=== PATIENT | male | born 1965 | race Caucasian/White ===

== ENCOUNTER 2017-09-03 09:54 | Inpatient (IN) | payer OTHER ==
[~2017-09-03] VITALS: Ht 180.3 cm; Wt 97.3 kg
[2017-09-03] MEDS ORDERED: ASPIRIN 81 MG TABLET CHEW PO ONE ×2 (10:30→11:30)
[2017-09-03 10:45] LABS: BASOPHILS # (AUTO) 0.03 x10^3/uL (0-0.1); BASOPHILS % (AUTO) 0 % (0-1); EOSINOPHILS # (AUTO) 0.02 x10^3/uL (0-0.4); EOSINOPHILS % (AUTO) 0 % (1-7); LYMPHOCYTES # (AUTO) 1.42 x10^3/uL (1-3.4); LYMPHOCYTES % (AUTO) 9 % (22-44); MD NO; MEAN CORPUSCULAR HEMOGLOBIN 32.7 pg (27.5-34.5); MEAN CORPUSCULAR VOLUME 95.9 fL (81-97); MEAN PLATELET VOLUME 8.4 fL (7.4-10.4); MONOCYTES # (AUTO) 1.07 x10^3/uL (0.2-0.8); MONOCYTES % (AUTO) 7 % (2-9); NEUTROPHILS # (AUTO) 13.24 x10^3/uL (1.8-6.8); NEUTROPHILS % (AUTO) 84 % (42-75); PLATELET COUNT 224 x10^3/uL (130-400); RED BLOOD COUNT 5.35 x10^6/uL (4.38-5.82)
[2017-09-03 10:53] LABS: INTERNATIONAL NORMALIZED RATIO 1.01 (0.93-1.1); PROTHROMBIN TIME 10.5 Seconds (9.6-11.5)
[2017-09-03 10:57] LABS: ALBUMIN 3.7 g/dL (3.4-5.0); ANION GAP 9 mmol/L (5-15); CALCIUM 8.7 mg/dL (8.5-10.1); CHLORIDE 103 mmol/L (98-107)
[2017-09-03 11:03] LABS: ALANINE AMINOTRANSFERASE 69 U/L (12-78); ALKALINE PHOSPHATASE 67 U/L (45-117); BILIRUBIN,TOTAL 0.8 mg/dL (0.2-1.0); CREATININE 1.11 mg/dL (0.7-1.3); TOTAL PROTEIN 7.7 g/dL (6.4-8.2)
[2017-09-03] MEDS ORDERED: ONDANSETRON ODT 4 MG ONE (11:24)
[2017-09-03] MEDS ORDERED: LEVOFLOXACIN/PMX 750MG/150ML 150 ML ONE (11:25)
[2017-09-03] MEDS ORDERED: MORPHINE SULFATE 4 MG/ML, 1ML ONE (11:25)
[2017-09-03] MEDS ORDERED: METOPROLOL 1 MG/ML, 5ML ONE (11:25)
[2017-09-03] MEDS ORDERED: ASPIRIN 81 MG TABLET CHEW ONE (11:25)
[2017-09-03] MEDS ORDERED: NITROGLYCERIN OINT 2%, 1GM TP ONE ×2 (11:25→11:30)
[2017-09-03] MEDS ORDERED: ONDANSETRON ODT 4 MG PO ONE ×2 (11:30→12:00)
[2017-09-03] MEDS ORDERED: METOPROLOL 1 MG/ML, 5ML IVPush PRN (11:30)
[2017-09-03] MEDS ORDERED: SODIUM CHLORIDE 0.9% 1,000ML IVBOLUS ONE ×2 (11:30→12:00)
[2017-09-03] MEDS ORDERED: SODIUM CHLORIDE FLUSH 10ML SYR IVF ONE (11:30)
[2017-09-03] MEDS ORDERED: MORPHINE SULFATE 4 MG/ML, 1ML IVPush PRN ×3 (11:30→12:30)
[2017-09-03] MEDS ORDERED: LEVOFLOXACIN/PMX 750MG/150ML 150 ML IVPB ONE (11:30)
[2017-09-03] MEDS ORDERED: OMNIPAQUE 350 MG/ML, 100ML BOTTLE ONE (12:14)
[2017-09-03] MEDS ORDERED: POLYETHYLENE GLYCOL 17 GM PACKET PO PRN (12:30)
[2017-09-03] MEDS ORDERED: HEPARIN 5,000 UNITS/ML, 1ML IV PRN (12:30)
[2017-09-03] MEDS ORDERED: HEPARIN 5,000 UNITS/ML, 1ML IV ONE (12:30)
[2017-09-03] MEDS ORDERED: BISACODYL 10 MG SUPP PR PRN (12:30)
[2017-09-03] MEDS ORDERED: LABETALOL 5MG/ML, 20ML IVPush PRN (12:30)
[2017-09-03] MEDS ORDERED: morphine SULFATE 10 MG/ML, 1ML IV PRN (12:30)
[2017-09-03] MEDS ORDERED: NITROGLYCERIN 0.4 MG BOTTLE (25 TABS) SL PRN (12:30)
[2017-09-03] MEDS ORDERED: HEPARIN 25,000 UNITS/500ML PMX 500 ML IV PRN ×2 (12:30→13:30)
[2017-09-03] MEDS ORDERED: DOCUSATE 100 MG CAPSULE PO PRN (12:30)
[2017-09-03] MEDS ORDERED: ONDANSETRON 2MG/ML, 2ML IVPush PRN (12:30)
[2017-09-03] MEDS ORDERED: LORazepam 2 MG/ML, 1ML IVPush PRN (13:00)
[2017-09-03] MEDS: ACETAMINOPHEN 325 MG TABLET PO PRN (13:08)
[2017-09-03 13:10] VITALS: BP 143/93
[2017-09-03] MEDS: HEPARIN 5,000 UNITS/ML, 1ML IV ONE ×2 (13:13→13:19)
[2017-09-03] MEDS: SODIUM CHLORIDE 0.9% 1,000 ML IV SCH (13:23)
[2017-09-03] MEDS: CEFTRIAXONE PMX 1GM/50ML 50 ML IV SCH (13:37)
[2017-09-03] MEDS ORDERED: MAGNESIUM SULFATE PMX 4GM/100M 100 ML IV ONE (14:00)
[2017-09-03] MEDS: DOXYCYCLINE 100 MG in DEXTROSE 5% 250 ML IV SCH (14:22)
[2017-09-03 14:24] LABS: AMPHETAMINE SCREEN, URINE Negative (Negative); BARBITURATE SCREEN, URINE Negative (Negative); BENZODIAZEPINE SCREEN, URINE Negative (Negative); CANNABINOID SCREEN, URINE Negative (Negative); COCAINE SCREEN, URINE Negative (Negative); METHADONE SCREEN, URINE Negative (Negative); OPIATE SCREEN, URINE Positive (Negative)
[2017-09-03 14:25] VITALS: BP 147/88
[2017-09-03] MEDS: METOPROLOL TARTRATE 25 MG TABLET PO SCH ×2 (14:29→20:38)
[2017-09-03 16:20] VITALS: BP 141/85
[2017-09-03] MEDS: BACLOFEN 10 MG TABLET PO SCH ×3 (16:21→23:27)
[2017-09-03 19:34] VITALS: BP 133/88
[2017-09-03] MEDS: HEPARIN 5,000 UNITS/ML, 1ML IV PRN (20:25)
[2017-09-03 20:36] VITALS: BP 116/93
[2017-09-03] MEDS: ATORVASTATIN 80 MG TABLET PO SCH (20:38)
[2017-09-03] MEDS: GUAIFENESIN ER 600 MG TABLET PO SCH (20:38)
[2017-09-04 01:56] VITALS: BP 132/87
[2017-09-04] MEDS: METOPROLOL TARTRATE 25 MG TABLET PO SCH ×4 (02:02→20:54)
[2017-09-04] MEDS: ACETAMINOPHEN 325 MG TABLET PO PRN ×2 (02:11→06:26)
[2017-09-04 02:57] LABS: BASOPHILS # (AUTO) 0.16 x10^3/uL (0-0.1); BASOPHILS % (AUTO) 1 % (0-1); EOSINOPHILS # (AUTO) 0.04 x10^3/uL (0-0.4); EOSINOPHILS % (AUTO) 0 % (1-7); LYMPHOCYTES # (AUTO) 1.93 x10^3/uL (1-3.4); LYMPHOCYTES % (AUTO) 16 % (22-44); MD NO; MEAN CORPUSCULAR HEMOGLOBIN 33.5 pg (27.5-34.5); MEAN CORPUSCULAR HGB CONC 34.6 g/dL (33.2-36.2); MEAN CORPUSCULAR VOLUME 96.7 fL (81-97); MONOCYTES # (AUTO) 1.26 x10^3/uL (0.2-0.8); MONOCYTES % (AUTO) 10 % (2-9); NEUTROPHILS # (AUTO) 8.76 x10^3/uL (1.8-6.8); NEUTROPHILS % (AUTO) 72 % (42-75); PLATELET COUNT 151 x10^3/uL (130-400); RED BLOOD COUNT 4.82 x10^6/uL (4.38-5.82); RED CELL DISTRIBUTION WIDTH 12.9 % (9.4-14.8)
[2017-09-04 03:06] LABS: ALANINE AMINOTRANSFERASE 51 U/L (12-78); ALBUMIN 3.1 g/dL (3.4-5.0); ANION GAP 6 mmol/L (5-15); CALCIUM 8.4 mg/dL (8.5-10.1); CHLORIDE 107 mmol/L (98-107); CHOLESTEROL, TOTAL 165 mg/dL (140-239); CREATININE 0.87 mg/dL (0.7-1.3)
[2017-09-04 03:08] LABS: ALKALINE PHOSPHATASE 53 U/L (45-117); CHOL/HDL RATIO 5.3; HDL CHOL % 19 % (26-37); HDL CHOLESTEROL (DIRECT) 31 mg/dL (40-60); LDL CHOLESTEROL,CALCULATED 94 mg/dL (54-169); TOTAL PROTEIN 6.8 g/dL (6.4-8.2); TRIGLYCERIDES 200 mg/dL (50-200); VLDL CHOLESTEROL 40 mg/dL (0-25)
[2017-09-04] MEDS: DOXYCYCLINE 100 MG in DEXTROSE 5% 250 ML IV SCH ×2 (03:22→15:12)
[2017-09-04] MEDS: HEPARIN 5,000 UNITS/ML, 1ML IV PRN ×2 (03:23→10:38)
[2017-09-04] MEDS: ASPIRIN 325 MG TABLET PO SCH (06:26)
[2017-09-04 06:53] VITALS: BP 99/65
[2017-09-04] MEDS ORDERED: SODIUM CHLORIDE 0.9% 1,000 ML IV ONE (08:04)
[2017-09-04] MEDS: SODIUM CHLORIDE 0.9% 1,000 ML IV SCH ×3 (08:51→21:04)
[2017-09-04] MEDS: GUAIFENESIN ER 600 MG TABLET PO SCH ×2 (08:51→20:55)
[2017-09-04] MEDS: BACLOFEN 10 MG TABLET PO SCH ×3 (08:51→20:55)
[2017-09-04] MEDS ORDERED: TICAGRELOR 90 MG TABLET ONE (11:27)
[2017-09-04] MEDS ORDERED: NITROGLYCERIN 5 MG/ML, 10ML ONE (11:27)
[2017-09-04] MEDS ORDERED: FENTANYL PF 100 MCG/2ML ONE (11:27)
[2017-09-04] MEDS ORDERED: VERAPAMIL 2.5 MG/ML, 2ML ONE (11:27)
[2017-09-04] MEDS ORDERED: MIDAZOLAM 1 MG/ML, 5ML ONE (11:27)
[2017-09-04] MEDS ORDERED: LIDOCAINE/PF 1%, 30ML ONE (11:28)
[2017-09-04] MEDS ORDERED: BIVALIRUDIN 250 MG ONE ×2 (11:28)
[2017-09-04] MEDS: CEFTRIAXONE PMX 1GM/50ML 50 ML IV SCH (13:30)
[2017-09-04 13:31] VITALS: BP 124/83
[2017-09-04] MEDS: SENNA/DOCUSATE TABLET PO SCH (15:12)
[2017-09-04 18:28] VITALS: BP 131/87
[2017-09-04 20:52] VITALS: BP 155/98
[2017-09-04] MEDS: ATORVASTATIN 80 MG TABLET PO SCH (20:54)
[2017-09-05 02:26] VITALS: BP 119/77
[2017-09-05] MEDS: METOPROLOL TARTRATE 25 MG TABLET PO SCH ×2 (02:31→08:36)
[2017-09-05] MEDS: DOXYCYCLINE 100 MG in DEXTROSE 5% 250 ML IV SCH (02:32)
[2017-09-05] MEDS: ACETAMINOPHEN 325 MG TABLET PO PRN ×2 (03:03→16:58)
[2017-09-05 04:54] LABS: BASOPHILS # (AUTO) 0.04 x10^3/uL (0-0.1); BASOPHILS % (AUTO) 0 % (0-1); EOSINOPHILS # (AUTO) 0.05 x10^3/uL (0-0.4); EOSINOPHILS % (AUTO) 0 % (1-7); LYMPHOCYTES # (AUTO) 1.87 x10^3/uL (1-3.4); LYMPHOCYTES % (AUTO) 15 % (22-44); MD NO; MEAN CORPUSCULAR HEMOGLOBIN 33.5 pg (27.5-34.5); MEAN CORPUSCULAR HGB CONC 34.4 g/dL (33.2-36.2); MEAN CORPUSCULAR VOLUME 97.3 fL (81-97); MONOCYTES # (AUTO) 1.27 x10^3/uL (0.2-0.8); MONOCYTES % (AUTO) 10 % (2-9); NEUTROPHILS # (AUTO) 9.01 x10^3/uL (1.8-6.8); NEUTROPHILS % (AUTO) 74 % (42-75); PLATELET COUNT 168 x10^3/uL (130-400); RED BLOOD COUNT 4.72 x10^6/uL (4.38-5.82); RED CELL DISTRIBUTION WIDTH 13.4 % (9.4-14.8)
[2017-09-05 04:55] LABS: ALBUMIN 2.9 g/dL (3.4-5.0); ANION GAP 8 mmol/L (5-15); CALCIUM 8.5 mg/dL (8.5-10.1); CHLORIDE 110 mmol/L (98-107)
[2017-09-05 04:59] LABS: ALANINE AMINOTRANSFERASE 41 U/L (12-78); ALKALINE PHOSPHATASE 69 U/L (45-117); BILIRUBIN,TOTAL 0.8 mg/dL (0.2-1.0); CREATININE 0.92 mg/dL (0.7-1.3); TOTAL PROTEIN 7.1 g/dL (6.4-8.2)
[2017-09-05] MEDS: SODIUM CHLORIDE 0.9% 1,000 ML IV SCH ×2 (05:04→08:36)
[2017-09-05] MEDS: ASPIRIN 325 MG TABLET PO SCH (06:05)
[2017-09-05 06:20] VITALS: BP 135/85
[2017-09-05] MEDS: GUAIFENESIN ER 600 MG TABLET PO SCH ×2 (08:35→19:46)
[2017-09-05] MEDS: SENNA/DOCUSATE TABLET PO SCH (08:35)
[2017-09-05] MEDS: THIAMINE 100MG TABLET PO SCH (08:36)
[2017-09-05] MEDS: FOLIC ACID 1 MG TABLET PO SCH (08:36)
[2017-09-05] MEDS: BACLOFEN 10 MG TABLET PO SCH ×3 (08:36→19:46)
[2017-09-05] MEDS: CLOPIDOGREL 75 MG TABLET PO SCH (09:35)
[2017-09-05 12:02] VITALS: BP 135/88
[2017-09-05] MEDS: CEFTRIAXONE PMX 1GM/50ML 50 ML IV SCH (14:00)
[2017-09-05] MEDS: METOPROLOL TARTRATE 50 MG TABLET PO SCH (16:58)
[2017-09-05] MEDS: CEFDINIR 300 MG CAPSULE PO SCH (19:46)
[2017-09-05] MEDS: DOXYCYCLINE 100MG TABLET PO SCH (19:46)
[2017-09-05] MEDS: ATORVASTATIN 80 MG TABLET PO SCH (19:46)
[2017-09-05 19:55] VITALS: BP 127/83
[2017-09-06 02:00] VITALS: BP 124/83
[2017-09-06 05:33] VITALS: BP 134/94
[2017-09-06] MEDS: METOPROLOL TARTRATE 50 MG TABLET PO SCH (05:35)
[2017-09-06] MEDS ORDERED: ASPIRIN 81 MG TABLET EC PO SCH (06:00)
[2017-09-06] MEDS ORDERED: ASPI-621 PO (08:57)
[2017-09-06] MEDS ORDERED: CLOP75TA PO (08:57)
[2017-09-06] MEDS ORDERED: NITR0.4T SL (08:57)
[2017-09-06] MEDS ORDERED: CEFD300C37 PO (08:57)
[2017-09-06] MEDS ORDERED: METO50TA82 PO (08:57)
[2017-09-06] MEDS ORDERED: DOXY100T PO (08:57)
[2017-09-06] MEDS ORDERED: ATOR-2 PO (08:57)
[2017-09-06] MEDS: SENNA/DOCUSATE TABLET PO SCH (09:00)
[2017-09-06 09:05] VITALS: BP 130/86
[2017-09-06] MEDS: CEFDINIR 300 MG CAPSULE PO SCH (09:18)
[2017-09-06] MEDS: GUAIFENESIN ER 600 MG TABLET PO SCH (09:18)
[2017-09-06] MEDS: THIAMINE 100MG TABLET PO SCH (09:19)
[2017-09-06] MEDS: BACLOFEN 10 MG TABLET PO SCH (09:19)
[2017-09-06] MEDS: CLOPIDOGREL 75 MG TABLET PO SCH (09:19)
[2017-09-06] MEDS: FOLIC ACID 1 MG TABLET PO SCH (09:19)
[2017-09-06] MEDS: DOXYCYCLINE 100MG TABLET PO SCH (09:19)
== END 2017-09-06 10:48 | disposition home or self-care (01) | DRG 871 ==
LOC: ED 11:45 → EDIP 11:46 → ED 12:10 → 5SO 12:44 → DCLOUNGE 09-06 10:31
PROVIDERS: ADMIT Internal Medicine Pulmonary Disease; ATTEND Internal Medicine Pulmonary Disease
PROC: 4A023N7 Measurement of Cardiac Sampling and Pressure, Left Heart, Percutaneous Approach (ICD-10-PCS; principal; 2017-09-04)
PROC: B2111ZZ Fluoroscopy of Multiple Coronary Arteries using Low Osmolar Contrast (ICD-10-PCS; 2017-09-04)
PROC: B2151ZZ Fluoroscopy of Left Heart using Low Osmolar Contrast (ICD-10-PCS; 2017-09-04)
DX: A41.9 Sepsis, unspecified organism (principal); I21.4 Non-ST elevation (NSTEMI) myocardial infarction; J18.0 Bronchopneumonia, unspecified organism; E44.1 Mild protein-calorie malnutrition; E87.1 Hypo-osmolality and hyponatremia; E83.42 Hypomagnesemia; I71.2 Thoracic aortic aneurysm, without rupture; I11.9 Hypertensive heart disease without heart failure; I25.10 Atherosclerotic heart disease of native coronary artery without angina pectoris; F17.200 Nicotine dependence, unspecified, uncomplicated; E78.5 Hyperlipidemia, unspecified; F12.90 Cannabis use, unspecified, uncomplicated; F10.10 Alcohol abuse, uncomplicated; K59.00 Constipation, unspecified; Z91.19 Patient's noncompliance with other medical treatment and regimen; Z91.14 Patient's other noncompliance with medication regimen; Z87.01 Personal history of pneumonia (recurrent); Z82.49 Family history of ischemic heart disease and other diseases of the circulatory system; Z79.82 Long term (current) use of aspirin; Z79.02 Long term (current) use of antithrombotics/antiplatelets; Z79.899 Other long term (current) drug therapy; Z68.29 Body mass index [BMI] 29.0-29.9, adult
CPT/HCPCS: 36415; 71045; 71275; 74174; 80053; 80061; 80307; 83605; 83735; 84145; 84484; 85025; 85520; 85610; 87040; 93005; 93306; 93458; 96361; 96374; 96375; 99156; C1894; J0583; J0696; J1644; J1956; J2250; J3010; J3490; J7060; Q0162; Q9967; J2270; J3475; J7030

== ENCOUNTER 2018-10-05 14:26 | Emergency (ER) | payer SELFPAY ==
[~2018-10-05] VITALS: Ht 180.3 cm; Wt 107.6 kg
[~2018-10-05 14:26] MED LIST: ASPI81TA45 PO; ATOR-2 PO; CEFD300C37 PO; CLOP75TA PO; DOXY100T PO; METO50TA82 PO; NITR0.4T41 SL
[2018-10-05 14:28] VITALS: BP 150/102
--- NOTE | 2018-10-05 15:21 | NUR ---
ERP AT BS FOR RE-EVAL.
--- NOTE | 2018-10-05 15:41 | NUR ---
D/C INSTRUCTIONS & F/U APPT RV'WD WITH PT, HE VERBALIZES UNDERSTANDING. CRUTCHES & CRUTCH TEACHING PROVIDED. PT AMBULATED OUT OF ED ON CRUTCHES WITH WITHOUT DIFFICULTY.
== END 2018-10-05 15:43 | disposition home or self-care (01) ==
LOC: ED 15:40
DX: M79.671 Pain in right foot (principal); I10 Essential (primary) hypertension
CPT/HCPCS: 99283